=== PATIENT | female | born 1955 | race Caucasian/White ===

== ENCOUNTER → 2017-12-07 | Day surgery (SDC) | payer BC | LOC: MSO 13:25 | DX: Z12.11 Encounter for screening for malignant neoplasm of colon (principal) | CPT/HCPCS: 00812; J2704; J7120 ==

== ENCOUNTER → 2019-01-20 | Outpatient (CLI) | payer BC | LOC: LAB 07:29 | DX: L63.9 Alopecia areata, unspecified (principal) ==